=== PATIENT | female | born 1945 | race Caucasian/White ===

== ENCOUNTER 2018-12-01 08:14 | Inpatient (IN) | payer MEDICARE, BC ==
[2018-12-01] MEDS: TRANEXAMIC ACID 1GM/100ML(PMX) 100 ML IVPB ×2 (06:00→13:25)
[~2018-12-01 08:14] MED LIST: BUPIVACAINE 0.5% (SDV) 30 ML, morphine SULFATE (PF) 8 MG, EPINEPHrine 0.3 MG, KETOROLAC... IRR; CEFAZOLIN 2 GM/50 ML (PMX) 50 ML IVPB
[2018-12-01] MEDS: VANCOMYCIN 1 GM (PMX) 250 ML IVPB (09:45)
[2018-12-01] MEDS: GABAPENTIN 300 MG CAP PO ×2 (09:45→21:17)
[2018-12-01] MEDS: DEXAMETHASONE 1 MG TAB PO (09:45)
[2018-12-01] MEDS ORDERED: METOCLOPRAMIDE 10 MG INJ (10:00)
[2018-12-01] MEDS ORDERED: ROPIVACAINE 0.5 % 30 ML VIAL (10:00)
[2018-12-01] MEDS: VANCOMYCIN 500 MG (PMX) 100 ML IVPB (10:00)
[2018-12-01] MEDS ORDERED: MIDAZOLAM 1 MG/ML 2 ML INJ (10:00)
[2018-12-01] MEDS ORDERED: PROPOFOL 20 ML (10:00)
[2018-12-01] MEDS ORDERED: ONDANSETRON 4 MG INJ (10:00)
[2018-12-01] MEDS: hydrALAzine 20 MG INJ IV (10:04)
[2018-12-01] MEDS ORDERED: HYDROmorphONE 2 MG/ML SYG (10:13)
[2018-12-01] MEDS ORDERED: THROMBIN 5000 UNIT VIAL (11:04)
[2018-12-01] MEDS ORDERED: TOBRAMYCIN 1.2 GM POWDER (11:04)
[2018-12-01] MEDS ORDERED: CA CHLORIDE 10% 10 ML SYRINGE (11:05)
[2018-12-01] MEDS: POLYMYXIN/BACITRACIN 1L IRRIG (11:05)
[2018-12-01] MEDS ORDERED: BUPIVACAINE 0.5%/EPI (SDV) 30 ML INJ (11:05)
[2018-12-01] MEDS ORDERED: FENTAnyl 50 MCG/ML VIAL (11:11)
[2018-12-01] MEDS ORDERED: TRANEXAMIC ACID 1GM/100ML(PMX) 100 ML (11:39)
[2018-12-01] MEDS ORDERED: SCOPOLAMINE 1.5 MG PATCH (11:53)
[2018-12-01] MEDS ORDERED: FENTAnyl 50 MCG/ML VIAL IV ×3 (12:00)
[2018-12-01] MEDS ORDERED: DIPHENHYDRAMINE 50 MG INJ IV ×2 (12:00→13:00)
[2018-12-01] MEDS ORDERED: hydrALAzine 20 MG INJ IV (12:00)
[2018-12-01] MEDS ORDERED: LABETALOL HCL 20MG INJ IV (12:00)
[2018-12-01] MEDS ORDERED: ONDANSETRON 4 MG INJ IV (12:00)
[2018-12-01] MEDS ORDERED: HYDROmorphONE 1 MG/5 ML IV SYRINGE IV ×3 (12:00)
[2018-12-01] MEDS ORDERED: LABETALOL HCL 20MG INJ (12:08)
[2018-12-01] MEDS ORDERED: HYDROmorphONE 1 MG/ML SYG IV (13:00)
[2018-12-01] MEDS ORDERED: MAGNESIUM HYDROXIDE 30ML CUP PO (13:00)
[2018-12-01] MEDS ORDERED: NACL 0.9% 3 ML SYG IV (13:00)
[2018-12-01] MEDS ORDERED: LOPERAMIDE 2 MG CAP PO (13:00)
[2018-12-01] MEDS ORDERED: oxyCODONE 5 MG TAB PO ×2 (13:00)
[2018-12-01] MEDS: ONDANSETRON 4 MG INJ IV ×2 (15:18→21:20)
[2018-12-01] MEDS: ACETAMINOPHEN 500 MG TAB PO (18:54)
[2018-12-01] MEDS: DEXAMETHASONE 2 MG TAB PO (18:54)
[2018-12-01] MEDS: SENNA/DOCUSATE NA (8.6MG/50MG) TAB PO (21:18)
[2018-12-01] MEDS: ZOLPIDEM 5 MG TAB PO (21:18)
[2018-12-02] MEDS: VANCOMYCIN 500 MG (PMX) 100 ML IVPB ×2 (00:03→12:00)
[2018-12-02] MEDS: DEXAMETHASONE 2 MG TAB PO ×3 (00:06→11:58)
[2018-12-02] MEDS: ACETAMINOPHEN 500 MG TAB PO ×3 (00:06→11:59)
[2018-12-02] MEDS: SENNA/DOCUSATE NA (8.6MG/50MG) TAB PO (08:38)
[2018-12-02] MEDS: oxyCODONE 5 MG TAB PO ×2 (08:39→14:11)
[2018-12-02] MEDS: ONDANSETRON 4 MG INJ IV (09:56)
[2018-12-02] MEDS: KETOROLAC 15 MG INJ IV (11:59)
== END 2018-12-02 17:25 | disposition home or self-care (01) | DRG 483 ==
LOC: REC 08:14 → MS1 14:12
PROC: 0RRK00Z Replacement of Left Shoulder Joint with Reverse Ball and Socket Synthetic Substitute, Open Approach (ICD-10-PCS; principal; 2018-12-01 11:18)
PROC: 0PBB0ZZ Excision of Left Clavicle, Open Approach (ICD-10-PCS; 2018-12-01 11:18)
DX: S46.012A Strain of muscle(s) and tendon(s) of the rotator cuff of left shoulder, initial encounter (principal); S42.292A Other displaced fracture of upper end of left humerus, initial encounter for closed fracture; X50.1XXA Overexertion from prolonged static or awkward postures, initial encounter; Y93.K1 Activity, walking an animal; M19.012 Primary osteoarthritis, left shoulder; K21.9 Gastro-esophageal reflux disease without esophagitis; R73.03 Prediabetes; F41.8 Other specified anxiety disorders
CPT/HCPCS: 73030; 86999; 88304; 88311; 97162